=== PATIENT | male | born 1985 | race Caucasian/White ===

== ENCOUNTER 2022-04-15 15:17 | Emergency (ER) | payer SELFPAY ==
[~2022-04-15] VITALS: Ht 180.3 cm; Wt 81.6 kg
[~2022-04-15 15:17] MED LIST changes: -BUPR-54 PO; -BUPR1FIL3 SL; -ONDA4TAB5 PO; -ZOLP10TA2 PO
[2022-04-15 15:33] VITALS: BP 131/83
--- NOTE | 2022-04-15 15:33 | NUR ---
[id number], C/O GENERALIZED BODY PAIN AND WEAKNESS, SEEN EARLIER AND WAS REQUESTING FOR PAIN MEDICATION. "IM TOO WEAK TO WALK" BG 160 [employer]
[2022-04-15] MEDS ORDERED: ZOLP10TA2 PO (16:04)
[2022-04-15] MEDS ORDERED: IBUPROFEN 600 MG TABLET ONE (16:06)
--- NOTE | 2022-04-15 16:19 | NUR ---
Patient discharged to home in stable condition. Written and verbal after care instructions given. Patient verbalizes understanding of instruction.
[2022-04-15] MEDS ORDERED: IBUPROFEN 600 MG TABLET PO ONE (16:30)
[2022-04-16] MEDS ORDERED: ONDA4TAB5 PO (04:17)
[2022-04-16] MEDS ORDERED: BUPR1FIL3 SL (12:09)
[2022-04-16] MEDS ORDERED: BUPR-54 PO (12:14)
== END 2022-04-15 16:19 | disposition home or self-care (01) ==
LOC: ER 15:20
DX: G47.00 Insomnia, unspecified (principal); F17.200 Nicotine dependence, unspecified, uncomplicated; Z79.899 Other long term (current) drug therapy

== ENCOUNTER → 2022-04-15 | Emergency (ER) | payer SELFPAY ==
[~2022-04-15] VITALS: Ht 180.3 cm; Wt 68.0 kg
[~2022-04-15] MED LIST: AMOX-430 PO; BUPR-54 PO; BUPR1FIL3 SL; IBUP-1957 PO; ONDA4TAB5 PO; ZOLP10TA2 PO
[2022-04-15 09:41] VITALS: BP 132/79
--- NOTE | 2022-04-15 09:41 | NUR ---
[id number] FROM [facility] C/O MOUTH PAIN/SORES AND BODY ACHES.
--- NOTE | 2022-04-15 09:47 | NUR ---
URINE SAMPLE COLLECTED
--- NOTE | 2022-04-15 09:57 | NUR ---
PT LEFT WITHOUT SIGNING PAPER.
== END | disposition home or self-care (01) ==
LOC: ER 09:36
DX: J32.9 Chronic sinusitis, unspecified (principal)

== ENCOUNTER 2022-04-16 04:03 | Inpatient (IN) | payer MEDICAID ==
[~2022-04-16] VITALS: Ht 177.8 cm; Wt 57.2 kg
[~2022-04-16 04:03] MED LIST changes: +ZOLP10TA2 PO
--- NOTE | 2022-04-16 04:13 | NUR ---
[id number] FROM [facility] C/O PER PT "I CAN'T WALK, NEED HELP, NEED A BED" + C/O VOMITING. AWAKE AND ALERT X4 AMBULATORY WITH STEADY GAIT. ALL V/S WNL.
[2022-04-16] MEDS ORDERED: ONDA4TAB5 PO (04:17)
[2022-04-16] MEDS ORDERED: ONDANSETRON 4 MG TAB.RAPDIS ONE (04:18)
[2022-04-16] MEDS ORDERED: ONDANSETRON HCL 4 MG/5 ML SOLUTION PO ONE (04:30)
--- NOTE | 2022-04-16 05:00 | NUR ---
PT. VOMIT X 1
[2022-04-16 05:12] LABS: BASOPHILS # (AUTO) 0.1 K/uL (0.0-0.2); BASOPHILS % (AUTO) 0.4 % (0.0-2.0); EOSINOPHILS % (AUTO) 0.1 % (0.0-6.0); HEMATOCRIT 40 % (39-51); HEMOGLOBIN 12.7 g/dL (13.5-17.5); LYMPHOCYTES # (AUTO) 1.8 K/uL (0.8-4.8); LYMPHOCYTES % (AUTO) 10.5 % (20.0-44.0); MEAN CORPUSCULAR HGB CONC 32 g/dl (31.0-36.0); MEAN CORPUSCULAR VOLUME 73 fL (80-96); MONOCYTES # (AUTO) 1.2 K/uL (0.1-1.30); MONOCYTES % (AUTO) 6.7 % (2.0-12.0); NEUTROPHILS # (AUTO) 14.2 K/uL (1.8-8.9); NEUTROPHILS % (AUTO) 82.3 % (43.0-81.0); PLATELET COUNT (AUTO) 721 K/uL (150-450); RED BLOOD CELL COUNT(AUTO) 5.42 MIL/uL (4.5-6.0); WHITE BLOOD COUNT (AUTO) 17.3 K/uL (4.3-11.0)
[2022-04-16 05:22] LABS: CALCIUM, SERUM 9.5 mg/dL (8.5-10.1); CREATININE 0.9 mg/dL (0.6-1.3); POTASSIUM 2.9 mmol/L (3.5-5.1)
--- NOTE | 2022-04-16 05:44 | NUR ---
COVID SWAB COLLECTED SENT TO LAB
--- NOTE | 2022-04-16 05:50 | NUR ---
IV LINE STARTED AT LAC #20
[2022-04-16] MEDS ORDERED: POTASSIUM CHLORIDE 20 MEQ TAB.PRT.SR PO ONE ×2 (05:51→06:00)
[2022-04-16] MEDS ORDERED: IV NS 0.9% 1,000 ML BAG IV ONE (06:00)
[2022-04-16] MEDS ORDERED: ACETAMINOPHEN 325 MG TABLET PO PRN (06:30)
[2022-04-16] MEDS ORDERED: IV 1/2NS 1000 ML 1,000 ML IV PRN (06:30)
[2022-04-16] MEDS ORDERED: ONDANSETRON HCL/PF 4 MG/2 ML VIAL IVP PRN (06:30)
[2022-04-16] MEDS ORDERED: MAG HYDROX/AL HYDROX/SIMETH 30 ML UDC PO PRN (06:30)
[2022-04-16] MEDS ORDERED: POTASSIUM CHLORIDE 10 MEQ/50 ML PREMIXED IVPB FOR PERIPHERAL LINE IV ONE (06:30)
--- NOTE | 2022-04-16 07:49 | NUR ---
ROOM 313-2
--- NOTE | 2022-04-16 07:57 | NUR ---
PT REPORT GIVEN TO AMEENA BERGAMN; ENDORSED LAC ACID RESULT, WILL INFORM ADMITTING MD PER RN.
--- NOTE | 2022-04-16 08:44 | NUR ---
PT TRANSFERRED TO UNIT [facility]IA [facility] ACLS PROTOCOL.
[2022-04-16 09:00] VITALS: BP 118/78
[2022-04-16] MEDS ORDERED: POTASSIUM CL. PREMIX PERIPHER. 50 ML IV SCH (09:00)
[2022-04-16] MEDS ORDERED: Z GUARD REMEDY 4 OZ OINT TP PRN (09:00)
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
[2022-04-16] MEDS: IV NS 0.9% 1,000 ML IV SCH ×3 (09:27→18:52)
[2022-04-16] MEDS: PIPERACILLIN /TAZOBACTAM 3.375 G in IV D5W 100 ML IV SCH ×3 (09:27→21:26)
--- NOTE | 2022-04-16 09:30 | NUR ---
RN NOTES: HOOKED TO NS @ 200 ML/HR AND IV ANTIBIOTICS (PIPERACILLIN)
--- NOTE | 2022-04-16 11:47 | NUR ---
RN NOTES: RN INFORMED DR. MILLER THAT PER PT HE'S HAVING SUBOXONE 8MG BID. LAST TIME PT HAD IT IS 3DAYS AGO. PT KEPT REFUSING OF BLOOD DRAWS, DR MILLER ORDERED CLEAR LIQUIDS,MORPHINE 2MG/IV ONE TIME DOSE ONLY. ORDERED NOTED AND CARRIED OUT.
[2022-04-16] MEDS: MORPHINE SULFATE INJ 2 MG/ML DISP.SYRIN IM PRN ×3 (11:56→23:54)
[2022-04-16 12:00] VITALS: BP 128/74
[2022-04-16] MEDS ORDERED: MORPHINE SULFATE INJ 2 MG/ML DISP.SYRIN IV ONE (12:00)
[2022-04-16] MEDS ORDERED: PIPERACILLIN /TAZOBACTAM 3.375 G in IV D5W 50 ML IV SCH (12:00)
--- NOTE | 2022-04-16 12:03 | NUR ---
RN NOTES: DR MILLER ORDERED GIVE MORPHINE 2MG/ IV NOW
[2022-04-16] MEDS ORDERED: BUPR1FIL3 SL (12:09)
[2022-04-16] MEDS ORDERED: BUPR-54 PO (12:14)
[2022-04-16] MEDS: METOCLOPRAMIDE HCL 10 MG/2 ML VIAL IV SCH ×2 (12:41→20:02)
--- NOTE | 2022-04-16 12:42 | NUR ---
RN NOTES: OFFERED REGLAN IV, PER PATIENT HE'SNOTHAVING EPISODES OF NAUSEA/VOMITING. PT REFUSED REGLAN.
[2022-04-16 12:59] LABS: CALCIUM, SERUM 8.3 mg/dL (8.5-10.1); CREATININE 0.8 mg/dL (0.6-1.3); POTASSIUM 3.4 mmol/L (3.5-5.1)
[2022-04-16 13:05] LABS: BILIRUBIN,DIRECT 0.1 mg/dL (0.0-0.2); BILIRUBIN,TOTAL 0.5 mg/dL (0.2-1.0)
[2022-04-16 13:20] LABS: BILIRUBIN,URINE NEGATIVE (NEGATIVE); COLOR,URINE YELLOW (YELLOW); LEUKOCYTE ESTERASE ,URINE NEGATIVE (NEGATIVE); NITRITE, URINE NEGATIVE (NEGATIVE); PROTEIN,URINE 100 mg/dl (NEGATIVE); UGLUCOSE NEGATIVE (NEGATIVE)
[2022-04-16 13:27] LABS: PH,URINE >9.0 (5.0-8.0)
[2022-04-16 13:39] LABS: BACTERIA,URINE Rare /HPF (None Seen); RBC,URINE 0-2 /HPF (0-2); SQUAMOUS EPITHELIAL CELL,UR Few /HPF (None Seen)
[2022-04-16 16:00] VITALS: BP 135/76
--- NOTE | 2022-04-16 16:08 | NUR ---
RN NOTES: INFORMED DR HOWARD CASTRO FOR [facility] REFERRAL FOR PT, PER MD HE WILL REFER PT TO DR PARTIDA. INFORMED PT.
[2022-04-16 16:12] VITALS: BP 135/76
--- NOTE | 2022-04-16 18:46 | NUR ---
METAL SHAPING MACHINE OPERATOR CLOSING NOTES: PT IN BED ASLEEP, EASILY AWAKE WITH STIMULI. A/O X3 AND ABLE TO VERBALIZED NEEDS, CURRENTLY PT DOZING OFF. NO SOB OR CARDIAC DISTRESS NOTED. ON RA AND TOLERATING WELL, IV ACCESS IN LAC G 20 NS @200 ML/HR AND PATENT, INTACT AND INFUSING WELL. KEPT RESTED AND COMFORTABLE. ON PAIN MANAGEMENT. SAFETY MEASURES MAINTAINED: BED LOCKED AND IN LOWEST POSITION, SR UP X2, CALL LIGHT IN EASY REACH FOR HELP. ENDORSED FOR STEPHANIE.
--- NOTE | 2022-04-16 19:50 | NUR ---
VIDEO PLAYER MECHANIC NOTE PATIENT YELLING OUT IN PAIN, C/O 10/10 ABDOMINAL PAIN, PATIENT THRASHING IN BED AND AGITATED, YELLING CONTINUOUSLY. CONTACTED SHOE SALESPERSON ALEX ARMSTRONG WITH ORDER FOR DILAUDID 1 MG IV X ONE TIME AND ATIVAN 1 MG IV Q6H PRN
[2022-04-16 20:00] VITALS: BP 131/77
[2022-04-16] MEDS ORDERED: HYDROMORPHONE 1 MG/1 ML DISP.SYRIN IV ONE (20:00)
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
[2022-04-16] MEDS ORDERED: MAGNESIUM HYDROXIDE 30 ML UDC PO PRN (22:00)
[2022-04-16] MEDS ORDERED: ZOLPIDEM TARTRATE 5 MG TABLET PO PRN (22:00)
[2022-04-17] VITALS: BP 120/70
--- NOTE | 2022-04-17 | NUR ---
STRING TOP SEALER NOTE PATIENT REPORTING 8/10 PAIN, RESTLESS, MOANING IN PAIN. VITAL SIGNS WNL, MORPHINE 2 MG IV GIVEN ORDERED. WILL CONTINUE TO MONITOR PATIENT
[2022-04-17] MEDS: IV NS 0.9% 1,000 ML IV SCH ×5 (00:33→19:55)
[2022-04-17] MEDS: LORAZEPAM INJ 2 MG/ML VIAL IV PRN ×2 (02:54→16:42)
--- NOTE | 2022-04-17 02:54 | NUR ---
TRUCK BODY BUILDER APPRENTICE NOTE PATIENT ANXIOUS IN BED, RESTLESS, THRASHING AROUND IN BED. ATIVAN 0.5 MG IV GIVEN ORDERED. WILL CONTINUE TO MONITOR PATIENT
[2022-04-17 05:16] VITALS: BP 118/76
[2022-04-17] MEDS: METOCLOPRAMIDE HCL 10 MG/2 ML VIAL IV SCH ×3 (05:16→21:22)
[2022-04-17] MEDS: MORPHINE SULFATE INJ 2 MG/ML DISP.SYRIN IM PRN ×5 (05:17→22:34)
--- NOTE | 2022-04-17 05:17 | NUR ---
DIRECTOR ADVERTISING NOTE PATIENT REPORTING 9/10 PAIN, RESTLESS, MOANING IN PAIN, GUARDING ABDOMEN. ALSO C/O OF NAUSEA. VITAL SIGNS WNL, MORPHINE 2 MG IV GIVEN ORDERED. WILL CONTINUE TO MONITOR PATIENT
[2022-04-17] MEDS: PIPERACILLIN /TAZOBACTAM 3.375 G in IV D5W 100 ML IV SCH ×3 (05:41→21:22)
[2022-04-17 06:55] LABS: BASOPHILS % (AUTO) 0.1 % (0.0-2.0); HEMATOCRIT 30 % (39-51); HEMOGLOBIN 9.8 g/dL (13.5-17.5); LYMPHOCYTES # (AUTO) 1.5 K/uL (0.8-4.8); LYMPHOCYTES % (AUTO) 6.3 % (20.0-44.0); MEAN CORPUSCULAR HGB CONC 33 g/dl (31.0-36.0); MEAN CORPUSCULAR VOLUME 74 fL (80-96); MONOCYTES # (AUTO) 1.5 K/uL (0.1-1.30); MONOCYTES % (AUTO) 6.4 % (2.0-12.0); NEUTROPHILS # (AUTO) 20.9 K/uL (1.8-8.9); NEUTROPHILS % (AUTO) 87.2 % (43.0-81.0); PLATELET COUNT (AUTO) 584 K/uL (150-450); RED BLOOD CELL COUNT(AUTO) 4.08 MIL/uL (4.5-6.0)
--- NOTE | 2022-04-17 07:20 | NUR ---
ms rn received on bed, awae,alert,oriented x3,not in any form of distress, respirations even and unlabored,no sob noted, lungs are clear,abdomen soft,positive bowel sounds,denies pain at this time, will monitor patient.
[2022-04-17 07:22] LABS: CALCIUM, SERUM 8.1 mg/dL (8.5-10.1); CREATININE 0.7 mg/dL (0.6-1.3); MAGNESIUM 2.2 mg/dL (1.8-2.4); POTASSIUM 4.4 mmol/L (3.5-5.1)
--- NOTE | 2022-04-17 07:41 | NUR ---
DIVORCE ATTORNEY CLOSING NOTE PATIENT SLEEPING IN BED, ALERT/ORIENTED X 3, PT ABLE TO MAKE NEEDS KNOWN. PT STABLE ON RA, NO S/S OF DISTRESS OR SOB NOTED, BREATHING EVEN AND UNLABORED. PT ON EXTERNAL TESTING CONSULTANT READING SINUS RHYTHM TO SINUS TACHY THROUGHOUT SHIFT. LEFT AC #20G IV ACCESS INTACT AND INFUSING NS @ 200 ML/HR. MEDICATIONS GIVEN ORDERED, PT NEEDS MET THROUGHOUT SHIFT. SAFETY MEASURES IN PLACE: CALL LIGHT WITHIN REACH, SIDE RAILS UP X 2, BED LOCKED IN LOWEST POSITION, BED ALARM ON. ENDORSED TO DAY SHIFT NURSE FOR CONTINUITY OF CARE
--- NOTE | 2022-04-17 08:52 | NUR ---
ms rn on clear liquids, refised,breakfast, due meds given.all needs attended.
[2022-04-17] MEDS: VANCOMYCIN 1.25 GM in IV D5W 250 ML IV SCH ×2 (08:58→17:21)
[2022-04-17 09:30] LABS: CREATINE KINASE, TOTAL 43 U/L (39-308)
[2022-04-17 09:36] LABS: BASOPHILS % (MANUAL) 0 % (0.0-2.0); EOSINOPHILS % (MANUAL) 0 % (0-4); LYMPHOCYTES % (MANUAL) 8 % (16-48); MONOCYTES % (MANUAL) 7 % (0-11.0); NEUTROPHILS % (MANUAL) 85 (42-76)
[2022-04-17] MEDS ORDERED: DIATR MEGLU/DIATRIZOATE SODIUM 30 ML BOTTLE (GASTROGRAPHIN) ONE ×3 (11:06)
[2022-04-17] MEDS ORDERED: IOHEXOL-300 100 ML VIAL IV ONE (15:46)
[2022-04-17] MEDS ORDERED: CT SWABBABLE VALVE TRANS SET 1 EA INFUS.SET MC ONE (15:46)
[2022-04-17] MEDS ORDERED: IV NS 0.9% 250 ML IV ONE (15:46)
--- NOTE | 2022-04-17 16:00 | NUR ---
ms rn on bed,no distress noted, ct abdomen done.
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
[2022-04-17] MEDS: ENSURE CLEAR 237 ML LIQUID (MIX BERRY) PO SCH (17:34)
--- NOTE | 2022-04-17 18:09 | NUR ---
ms rn on bed,no distress noted,all needs attended.
--- NOTE | 2022-04-17 19:37 | NUR ---
RN OPENING NOTE PATIENT AWAKE IN BED. A/OX3. NO S/S OF DISTRESS, BREATHING W/O DIFFICULTY ON ROOM AIR. LAC #20 INTACT AND PATENT W/ NS 200ML/HR. TELE MONITOR REVEALS SR 93. SAFETY MEASURES IN PLACE: BED LOCKED AND AT LOWEST POSITION, RAILS UP X2, CALL HUYNH WITHIN REACH. WILL CONTINUE TO MONITOR PATIENT.
[2022-04-17 20:00] VITALS: BP 110/67
[2022-04-18] VITALS: BP 110/63
[2022-04-18] MEDS: VANCOMYCIN 1.25 GM in IV D5W 250 ML IV SCH ×2 (00:54→08:20)
[2022-04-18] MEDS: IV NS 0.9% 1,000 ML IV SCH ×2 (01:16→06:11)
[2022-04-18] MEDS: MORPHINE SULFATE INJ 2 MG/ML DISP.SYRIN IM PRN ×2 (03:55→08:21)
[2022-04-18 04:55] VITALS: BP 97/59
[2022-04-18] MEDS: METOCLOPRAMIDE HCL 10 MG/2 ML VIAL IV SCH ×3 (05:50→20:15)
[2022-04-18] MEDS: PIPERACILLIN /TAZOBACTAM 3.375 G in IV D5W 100 ML IV SCH ×3 (05:50→20:15)
[2022-04-18 06:47] LABS: BASOPHILS # (AUTO) 0.1 K/uL (0.0-0.2); BASOPHILS % (AUTO) 0.3 % (0.0-2.0); EOSINOPHILS % (AUTO) 0.2 % (0.0-6.0); HEMATOCRIT 26 % (39-51); LYMPHOCYTES # (AUTO) 2.4 K/uL (0.8-4.8); MEAN CORPUSCULAR HGB CONC 31 g/dl (31.0-36.0); MEAN CORPUSCULAR VOLUME 74 fL (80-96); MONOCYTES # (AUTO) 1.3 K/uL (0.1-1.30); MONOCYTES % (AUTO) 7.9 % (2.0-12.0); NEUTROPHILS # (AUTO) 13.1 K/uL (1.8-8.9); NEUTROPHILS % (AUTO) 77.6 % (43.0-81.0); PLATELET COUNT (AUTO) 440 K/uL (150-450); WHITE BLOOD COUNT (AUTO) 16.8 K/uL (4.3-11.0)
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
--- NOTE | 2022-04-18 07:05 | NUR ---
ms rn received on bed, awake,alert.oriented x4,not in any form of distress, respirations even and unlabored,no sob noted, lungs are clear,abdomen soft,positive bowel sounds,denies pain at this time,all needs attended.
[2022-04-18 07:33] LABS: ALBUMIN 2.2 g/dL (3.4-5.0); BILIRUBIN,TOTAL 0.3 mg/dL (0.2-1.0); CALCIUM, SERUM 7.9 mg/dL (8.5-10.1); CREATININE 0.8 mg/dL (0.6-1.3); POTASSIUM 3.6 mmol/L (3.5-5.1); TOTAL PROTEIN, SERUM 6.1 g/dL (6.4-8.2)
[2022-04-18 08:00] VITALS: BP 103/61
[2022-04-18] MEDS: LORAZEPAM INJ 2 MG/ML VIAL IV PRN ×3 (09:14→19:34)
[2022-04-18] MEDS: NICOTINE PATCH (21MG) 21 MG PATCH.TD24 TD SCH (09:15)
[2022-04-18] MEDS: ENSURE CLEAR 237 ML LIQUID (MIX BERRY) PO SCH ×2 (09:19→17:19)
--- NOTE | 2022-04-18 09:30 | NUR ---
ms trevizo breakfast served,due meds given,tolerated well.
--- NOTE | 2022-04-18 10:00 | NUR ---
ms rn patient became aggressive, acting, shouting out, restrain applied to both wrist.
[2022-04-18] MEDS ORDERED: MORPHINE SULFATE INJ 2 MG/ML DISP.SYRIN IM SCH (12:30)
[2022-04-18] MEDS: MORPHINE SULFATE INJ 2 MG/ML DISP.SYRIN IV SCH ×4 (12:48→23:37)
[2022-04-18 13:08] LABS: BILIRUBIN,DIRECT 0.1 mg/dL (0.0-0.2)
[2022-04-18 16:00] VITALS: BP 113/65
--- NOTE | 2022-04-18 16:00 | NUR ---
ms santhosh manrique changed icreased ativan and morphine meds.
--- NOTE | 2022-04-18 19:03 | NUR ---
ms rn patient walking on hallway, no distress noted.
--- NOTE | 2022-04-18 19:55 | NUR ---
RN OPENING NOTES RECEIVED PT IN BED, AWAKE, WALKING THROUGH HALLS PREVIOUSLY. AOx4, ABLE TO MAKE NEEDS KNOWN. ON RA AND TOLERATING WELL. NO SOB NOTED. NO S/SX OF RESPIRATORY DISTRESS NOTED. TELE MONITOR DETECTS SR WITH RATE OF 89. IV ACCESS IN R HAND #24G. IV IS INTACT, PATENT, AND FLUSHING WELL. SAFETY PRECAUTIONS IN PLACE: BED IN LOWEST, LOCKED POSITION, SIDERAILS UPx2, AND BRAKES ON. TABLE AND CALL LIGHT WITHIN REACH. WILL CONTINUE TO MONITOR.
[2022-04-18 20:00] VITALS: BP 111/59
--- NOTE | 2022-04-18 20:16 | NUR ---
RN NOTES ADMINISTERED MORPHINE FOR PAIN PER MD ORDER. VS WNL. WILL CONTINUE TO MONITOR.
--- NOTE | 2022-04-18 21:02 | NUR ---
RN NOTES ADMINISTERED AMBIEN FOR SLEEP PER MD ORDER.
--- NOTE | 2022-04-18 23:37 | NUR ---
RN NOTES ADMINISTERED MORPHINE FOR PAIN PER MD ORDER. VS WNL. WILL CONTINUE TO MONITOR.
[2022-04-19] VITALS: BP 102/59
[2022-04-19] MEDS: VANCOMYCIN 1 GM in IV D5W 250 ML IV SCH ×2 (00:22→08:34)
[2022-04-19] MEDS: MORPHINE SULFATE INJ 2 MG/ML DISP.SYRIN IV SCH ×2 (03:35→08:37)
[2022-04-19 04:00] VITALS: BP 109/58
[2022-04-19] MEDS: PIPERACILLIN /TAZOBACTAM 3.375 G in IV D5W 100 ML IV SCH ×2 (05:39→12:38)
[2022-04-19] MEDS: METOCLOPRAMIDE HCL 10 MG/2 ML VIAL IV SCH ×2 (05:39→12:37)
[2022-04-19 06:45] LABS: ALBUMIN 2.1 g/dL (3.4-5.0); BILIRUBIN,TOTAL 0.2 mg/dL (0.2-1.0); CALCIUM, SERUM 7.8 mg/dL (8.5-10.1); CREATININE 0.8 mg/dL (0.6-1.3); POTASSIUM 3.2 mmol/L (3.5-5.1)
[2022-04-19 06:46] LABS: BASOPHILS % (AUTO) 0.2 % (0.0-2.0); EOSINOPHILS % (AUTO) 1.1 % (0.0-6.0); HEMATOCRIT 23 % (39-51); HEMOGLOBIN 7.4 g/dL (13.5-17.5); LYMPHOCYTES # (AUTO) 2.4 K/uL (0.8-4.8); LYMPHOCYTES % (AUTO) 21.8 % (20.0-44.0); MEAN CORPUSCULAR HGB CONC 32 g/dl (31.0-36.0); MEAN CORPUSCULAR VOLUME 73 fL (80-96); MONOCYTES # (AUTO) 0.9 K/uL (0.1-1.30); MONOCYTES % (AUTO) 7.7 % (2.0-12.0); NEUTROPHILS # (AUTO) 7.7 K/uL (1.8-8.9); NEUTROPHILS % (AUTO) 69.2 % (43.0-81.0); PLATELET COUNT (AUTO) 448 K/uL (150-450); RED BLOOD CELL COUNT(AUTO) 3.19 MIL/uL (4.5-6.0); WHITE BLOOD COUNT (AUTO) 11.2 K/uL (4.3-11.0)
--- NOTE | 2022-04-19 06:50 | NUR ---
RN CLOSING NOTES PT IN BED, ASLEEP, AWAKENS TO VERBAL STIMULI. AOx4, ABLE TO MAKE NEEDS KNOWN. ON RA AND TOLERATING WELL. NO SOB NOTED. NO S/SX OF RESPIRATORY DISTRESS NOTED. TELE MONITOR DETECTS SR WITH RATE OF 89. IV ACCESS IN R HAND #24G. IV IS INTACT, PATENT, AND FLUSHING WELL. ALL ORDERS CARRIED OUT. ALL NEEDS MET. TREATED PAIN THROUGHOUT SHIFT. SAFETY PRECAUTIONS IN PLACE: BED IN LOWEST, LOCKED POSITION, SIDERAILS UPx2, AND BRAKES ON. TABLE AND CALL LIGHT WITHIN REACH. WILL ENDORSE TO ONCOMING SHIFT FOR STEPHANIE.
[2022-04-19] MEDS: LORAZEPAM INJ 2 MG/ML VIAL IV PRN (07:29)
--- NOTE | 2022-04-19 07:29 | NUR ---
RN NOTES ADMINISTERED ATIVAN FOR AGITATION. PT WAS THROWING IV POLE AT WINDOW. BECOMING AGGRESSIVE.
--- NOTE | 2022-04-19 07:55 | NUR ---
RN OPENING NOTE PATIENT AWAKE IN ROOM, VERY AGITATED, ATIVAN WAS GIVEN AND SECURITY WAS CALLED. A/O X4. NO S/S OF PAIN NOTED AT THIS TIME. ON ROOM AIR, NO DISTRESS OR SHORTNESS OF BREATH NOTED. IV ACCESS L HAND #24G, INTACT, PATENT AND FLUSHING WELL. PATIENT ON EXTERNAL FORESTRY AID TECHNICIAN BUT PATIENT KEEP TAKING IT OFF, NO CARDIAC DISTRESS NOTED. FALL AND SAFETY MEASURES IN PLACE, BED ALARM ON, BED IN LOW AND LOCK POSITION, CALL LIGHT AND TABLE WITHIN EASY REACH, SIDE RAILS UP X2. WILL CONTINUE TO MONITOR.
[2022-04-19 08:00] VITALS: BP 101/57
[2022-04-19] MEDS: IV NS 0.9% 1,000 ML IV SCH ×2 (08:35→12:38)
[2022-04-19] MEDS: NICOTINE PATCH (21MG) 21 MG PATCH.TD24 TD SCH (08:37)
[2022-04-19] MEDS ORDERED: POTASSIUM CHLORIDE 20 MEQ TAB.PRT.SR PO SCH (09:00)
[2022-04-19] MEDS ORDERED: PANTOPRAZOLE 40 MG VIAL IV SCH (09:00)
[2022-04-19] MEDS: ENSURE CLEAR 237 ML LIQUID (MIX BERRY) PO SCH (10:06)
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
[2022-04-19 10:58] LABS: HEMOGLOBIN 7.4 g/dL (13.5-17.5)
[2022-04-19] MEDS ORDERED: MORPHINE SULFATE INJ 2 MG/ML DISP.SYRIN IV SCH (12:30)
[2022-04-19] MEDS ORDERED: SOD FERRIC GLUC 125 MG in IV NS 0.9% 100 ML IV SCH (14:00)
--- NOTE | 2022-04-19 15:00 | NUR ---
HORTICULTURE INSTRUCTOR NOTES PATIENT REQUESTED TO BE DISCHARGE AMA AND SIGNED THE FORM , A/O X4 , V/S TAKEN STABLE AND RECORDED, NO IV ACCESS , REFUSED SKIN ASSESSMENT , NAME ARM BAND REMOVED , ALL BELONGINGS CHECKED AND SIGNED , DISCUSSED REGARDING RISK OF LEAVING AMA AND PATIENT VERBALIZED UNDERSTANDING , INSTRUCTED TO CALL 911 IN CASE OF EMERGENCY , PATIENT LEFT AMBULATORY AND WITH NO SIGNS OF DISTRESS , ACCOMPANIED BY RN TO THE LOBBY , DOCTOR AND CHARGE NURSE AWARE OF DISCHARGE
== END 2022-04-19 15:00 | disposition left against medical advice (07) | DRG 720 ==
LOC: ER 04:05 → TELE 08:32
PROVIDERS: ADMIT Internal Medicine; ATTEND Internal Medicine
DX: A41.9 Sepsis, unspecified organism (principal); E87.2 Acidosis; D62 Acute posthemorrhagic anemia; K62.89 Other specified diseases of anus and rectum; R65.20 Severe sepsis without septic shock; K52.9 Noninfective gastroenteritis and colitis, unspecified; E87.6 Hypokalemia; F19.10 Other psychoactive substance abuse, uncomplicated; F11.23 Opioid dependence with withdrawal; Z53.29 Procedure and treatment not carried out because of patient's decision for other reasons
CPT/HCPCS: 36415; 74178; 80048-TC; 80053-TC; 80202-TC; 81001; 82247-TC; 82248-TC; 82550-TC; 82728-TC; 83540-TC; 83605-TC; 83690-TC; 83735-TC; 84100-TC; 84484-TC; 85025-TC; 85027-TC; 87040-TC; 87081-TC; 87086-TC; C9113; C9803; G0378; J1170; J2060; J2270; J2543; J2765; J2916; J3370; J7030; J7050; J7060; Q0162; Q9963; Q9967